=== PATIENT | male | born 1965 | race Two or more races ===

== ENCOUNTER 2021-10-29 13:44 | Inpatient (IN) | payer OTHER ==
[~2021-10-29] VITALS: Ht 185.4 cm; Wt 117.0 kg
[2021-10-29 14:15] LABS: Basophils # (auto) 0.1 10 ^3/uL (0-0.2); Basophils % (auto) 0.7 % (0.0-2.0); Eosinophils # (auto) 0 10 ^3/uL (0-0.8); Eosinophils % (auto) 0.2 % (0.0-7.0); Hematocrit 47.6 % (41.0-53.0); Hemoglobin 15.9 g/dL (13.5-17.5); Lymphocytes # (auto) 4.9 10 ^3/uL (0.4-5.4); Lymphocytes % (auto) 44.7 % (10.0-50.0); Mean Corpuscular Hemoglobin 30.5 pg (28.0-32.0); Mean Corpuscular Hgb Conc. 33.5 g/dL (32.0-36.0); Monocytes # (auto) 1.9 10 ^3/uL (0-1.3); Monocytes % (auto) 16.9 % (0.0-12.0); Neutrophils # (auto) 4.1 10 ^3/uL (1.6-8.6); Neutrophils % (auto) 37.5 % (37.0-80.0); Nucleated Red Blood Cells % 0.1 %; Red Blood Cells 5.23 10^6/uL (4.5-5.90); Red Cell Distribution Width 13.4 % (11.8-14.3)
[2021-10-29] MEDS ORDERED: LORazepam 2MG/ML-1ML VIAL IV ONE (14:30)
[2021-10-29] MEDS ORDERED: dilTIAZem 25 MG/5 ML VIAL IV ONE ×6 (14:30→23:00)
[2021-10-29 14:32] LABS: INR 1.2 (0.9-1.15); Partial Thromboplastin Time 31.3 sec (24.6-33.4)
[2021-10-29 14:33] LABS: Albumin 2.9 g/dL (3.4-5.0); BUN/Creatinine Ratio 16.5; Calcium 8.2 mg/dL (8.5-10.1); Magnesium 1.9 mg/dL (1.6-2.6); Potassium 4.1 mmol/L (3.5-5.1)
[2021-10-29 14:36] LABS: Bilirubin, Total 0.9 mg/dL (0.2-1.0); Total Protein 6.3 g/dL (6.4-8.2)
[2021-10-29] MEDS ORDERED: dilTIAZem HCL 50 MG/10 ML VIAL IV ONE (15:30)
[2021-10-29] MEDS ORDERED: SODIUM CHLORIDE 0.9% 1,000 ML IV ONE ×4 (16:00→23:00)
[2021-10-29] MEDS ORDERED: DEXTROSE (50%) 50ML SYRG IV ONE (19:00)
[2021-10-29] MEDS ORDERED: ETOMIDATE (2MG/ML) 20ML VIAL IV ONE (23:45)
[2021-10-30] VITALS (7 sets, daily range): BP systolic 90–144; BP diastolic 51–77
[2021-10-30] MEDS ORDERED: dilTIAZem 125mg/125ml BAG KIT 125 ML IV ONE (01:15)
[2021-10-30] MEDS ORDERED: AMIODARONE HCL 150 MG in D5W 5% 100 ML IV ONE (01:30)
[2021-10-30] MEDS: NITROGLYCERIN 2% OINT 1GM PKG TD SCH ×2 (01:30→21:45)
[2021-10-30] MEDS ORDERED: AMIODARONE 450mg/250ml AE 250 ML IV SCH (01:45)
[2021-10-30] MEDS ORDERED: AMIODARONE HCL (50 MG/ ML) 3 ML VIAL IV ONE (02:48)
[2021-10-30 05:04] LABS: Basophils # (auto) 0 10 ^3/uL (0-0.2); Basophils % (auto) 0.5 % (0.0-2.0); Eosinophils # (auto) 0 10 ^3/uL (0-0.8); Eosinophils % (auto) 0.3 % (0.0-7.0); Hematocrit 39.2 % (41.0-53.0); Hemoglobin 13.8 g/dL (13.5-17.5); Lymphocytes # (auto) 2.9 10 ^3/uL (0.4-5.4); Mean Corpuscular Hemoglobin 31.7 pg (28.0-32.0); Mean Corpuscular Hgb Conc. 35.2 g/dL (32.0-36.0); Monocytes # (auto) 1.1 10 ^3/uL (0-1.3); Monocytes % (auto) 17.1 % (0.0-12.0); Neutrophils # (auto) 2.4 10 ^3/uL (1.6-8.6); Neutrophils % (auto) 37.1 % (37.0-80.0); Nucleated Red Blood Cells % 0.1 %; Red Blood Cells 4.35 10^6/uL (4.5-5.90); Red Cell Distribution Width 13.5 % (11.8-14.3); White Blood Cell 6.4 10^3/uL (4.4-10.8)
[2021-10-30 05:15] LABS: Albumin 2.4 g/dL (3.4-5.0); BUN/Creatinine Ratio 12.9; Calcium 7.4 mg/dL (8.5-10.1); Potassium 3.9 mmol/L (3.5-5.1)
[2021-10-30 05:17] LABS: Bilirubin, Total 1.1 mg/dL (0.2-1.0); Total Protein 5.6 g/dL (6.4-8.2)
[2021-10-30] MEDS: AMIODARONE 450mg/250ml AE 250 ML IV SCH ×2 (07:52→22:45)
[2021-10-30] MEDS: PANTOPRAZOLE 40 MG/10 ML VIAL INJ IV SCH ×2 (11:16→21:51)
[2021-10-30] MEDS: ENOXAPARIN SOD 100 MG/1 ML SYRINGE SC SCH ×2 (11:16→21:51)
[2021-10-30] MEDS ORDERED: dilTIAZem 120MG ER CAP PO ONE (14:15)
[2021-10-30] MEDS ORDERED: METOPROLOL TARTRATE 25 MG TAB PO ONE (14:15)
[2021-10-30] MEDS ORDERED: BUPR8MIS SL (14:17)
[2021-10-30] MEDS ORDERED: CLON0.5T3 PO (14:17)
[2021-10-30] MEDS ORDERED: clonazePAM 0.5 MG TAB PO ONE (14:30)
[2021-10-30] MEDS: ONDANSETRON HCL 4 MG/2 ML VIAL IV PRN ×2 (15:44→21:51)
[2021-10-30] MEDS: clonazePAM 0.5 MG TAB PO SCH (20:24)
[2021-10-30] MEDS: ACETAMINOPHEN 325 MG TAB PO PRN (20:42)
[2021-10-30] MEDS: METOPROLOL TARTRATE 25 MG TAB PO SCH (21:50)
[2021-10-30] MEDS ORDERED: AZITHROMYCIN 500MG/ 250ML 250 ML IV ONE (23:00)
[2021-10-31] VITALS (31 sets, daily range): BP systolic 81–132; BP diastolic 46–80
[2021-10-31] MEDS: NITROGLYCERIN 2% OINT 1GM PKG TD SCH ×8 (00:18→23:45)
[2021-10-31] MEDS: ACETAMINOPHEN 325 MG TAB PO PRN ×2 (04:04→13:49)
[2021-10-31 04:15] LABS: Basophils # (auto) 0.1 10 ^3/uL (0-0.2); Basophils % (auto) 0.7 % (0.0-2.0); Eosinophils # (auto) 0 10 ^3/uL (0-0.8); Eosinophils % (auto) 0.3 % (0.0-7.0); Hematocrit 40.4 % (41.0-53.0); Hemoglobin 13.9 g/dL (13.5-17.5); Lymphocytes # (auto) 3.9 10 ^3/uL (0.4-5.4); Lymphocytes % (auto) 45.8 % (10.0-50.0); Mean Corpuscular Hemoglobin 30.4 pg (28.0-32.0); Mean Corpuscular Hgb Conc. 34.3 g/dL (32.0-36.0); Mean Corpuscular Volume 88.5 fL (80.0-100.0); Monocytes # (auto) 1.3 10 ^3/uL (0-1.3); Monocytes % (auto) 15.1 % (0.0-12.0); Neutrophils # (auto) 3.2 10 ^3/uL (1.6-8.6); Neutrophils % (auto) 38.1 % (37.0-80.0); Nucleated Red Blood Cells % 0.1 %; Red Blood Cells 4.56 10^6/uL (4.5-5.90); Red Cell Distribution Width 13.4 % (11.8-14.3); White Blood Cell 8.5 10^3/uL (4.4-10.8)
[2021-10-31 04:31] LABS: Urine Bacteria NONE SEEN /hpf (None Seen); Urine Blood 2+ /uL (Negative); Urine Mucus FEW (None Seen); Urine Specific Gravity 1.029 (1.001-1.035); Urine WBC 1 /hpf (0 - 3)
[2021-10-31 04:32] LABS: Albumin 2.4 g/dL (3.4-5.0); Calcium 7.8 mg/dL (8.5-10.1); Magnesium 1.8 mg/dL (1.6-2.6); Potassium 4.1 mmol/L (3.5-5.1)
[2021-10-31 04:34] LABS: BUN/Creatinine Ratio 11.4
[2021-10-31 04:37] LABS: Bilirubin, Total 1.5 mg/dL (0.2-1.0); Total Protein 5.9 g/dL (6.4-8.2)
[2021-10-31] MEDS: AMIODARONE 450mg/250ml AE 250 ML IV SCH (08:47)
[2021-10-31] MEDS: cefTRIAXone 1GM/50ML D5W 50 ML IV SCH ×2 (08:57→21:13)
[2021-10-31] MEDS: PANTOPRAZOLE 40 MG/10 ML VIAL INJ IV SCH ×2 (08:57→21:13)
[2021-10-31] MEDS: ENOXAPARIN SOD 100 MG/1 ML SYRINGE SC SCH ×2 (08:58→21:13)
[2021-10-31] MEDS: dilTIAZem 120MG ER CAP PO SCH (09:49)
[2021-10-31] MEDS: clonazePAM 0.5 MG TAB PO SCH ×2 (09:49→21:12)
[2021-10-31] MEDS: METOPROLOL TARTRATE 25 MG TAB PO SCH ×2 (09:50→21:10)
[2021-10-31] MEDS ORDERED: AZITHROMYCIN 500MG/ 250ML 250 ML IV SCH (10:00)
[2021-10-31] MEDS ORDERED: clonazePAM 0.5 MG TAB PO SCH (10:00)
[2021-10-31] MEDS ORDERED: VANCOMYCIN PER PHARMACY 0 MG IV SCH (16:45)
[2021-10-31] MEDS ORDERED: VANCOMYCIN 1GM/250ML 250 ML IV ONE (17:00)
[2021-10-31] MEDS ORDERED: PRED10TA PO (17:15)
[2021-10-31] MEDS ORDERED: DIVA500T13 PO (17:15)
[2021-10-31] MEDS ORDERED: CLON0.5T3 PO (17:15)
[2021-10-31] MEDS ORDERED: APIX5TAB PO (17:15)
[2021-11-01] VITALS (24 sets, daily range): BP systolic 84–130; BP diastolic 53–77
[2021-11-01 03:14] LABS: Basophils # (auto) 0 10 ^3/uL (0-0.2); Basophils % (auto) 0.4 % (0.0-2.0); Eosinophils # (auto) 0 10 ^3/uL (0-0.8); Eosinophils % (auto) 0.6 % (0.0-7.0); Hematocrit 36.5 % (41.0-53.0); Hemoglobin 12.6 g/dL (13.5-17.5); Lymphocytes # (auto) 3.6 10 ^3/uL (0.4-5.4); Lymphocytes % (auto) 43.1 % (10.0-50.0); Mean Corpuscular Hemoglobin 30.6 pg (28.0-32.0); Mean Corpuscular Hgb Conc. 34.4 g/dL (32.0-36.0); Mean Corpuscular Volume 88.9 fL (80.0-100.0); Monocytes # (auto) 1.3 10 ^3/uL (0-1.3); Monocytes % (auto) 15.5 % (0.0-12.0); Neutrophils # (auto) 3.4 10 ^3/uL (1.6-8.6); Neutrophils % (auto) 40.4 % (37.0-80.0); Red Blood Cells 4.11 10^6/uL (4.5-5.90); Red Cell Distribution Width 13.3 % (11.8-14.3); White Blood Cell 8.4 10^3/uL (4.4-10.8)
[2021-11-01 03:35] LABS: Alanine Aminotransferase 30 U/L (16-61); Albumin 2.1 g/dL (3.4-5.0); Anion Gap 7 (5-15); Aspartate Aminotransferase 32 U/L (15-37); BUN/Creatinine Ratio 9.8; Blood Urea Nitrogen 8 mg/dL (7-18); Calcium 7.2 mg/dL (8.5-10.1); Carbon Dioxide 26 mmol/L (21-32); Chloride 105 mmol/L (98-107); GFR African American 124 mL/min; GFR Non-African American 103 mL/min; Glucose 97 mg/dL (74-106); Sodium 138 mmol/L (136-145)
[2021-11-01 03:38] LABS: Alkaline Phosphatase 70 U/L (45-117); Bilirubin, Total 0.5 mg/dL (0.2-1.0); Total Protein 5.5 g/dL (6.4-8.2)
[2021-11-01] MEDS: NITROGLYCERIN 2% OINT 1GM PKG TD SCH ×5 (03:45→19:45)
[2021-11-01] MEDS: AMIODARONE 450mg/250ml AE 250 ML IV SCH ×2 (04:33→07:08)
[2021-11-01] MEDS: VANCOMYCIN 1GM/250ML 250 ML IV SCH ×2 (04:33→16:12)
[2021-11-01] MEDS: PANTOPRAZOLE 40 MG/10 ML VIAL INJ IV SCH ×2 (08:53→21:37)
[2021-11-01] MEDS: cefTRIAXone 1GM/50ML D5W 50 ML IV SCH ×2 (08:53→21:38)
[2021-11-01] MEDS: dilTIAZem 120MG ER CAP PO SCH (08:54)
[2021-11-01] MEDS: ACETAMINOPHEN 325 MG TAB PO PRN (08:54)
[2021-11-01] MEDS: METOPROLOL TARTRATE 25 MG TAB PO SCH ×2 (08:55→21:39)
[2021-11-01] MEDS: clonazePAM 0.5 MG TAB PO SCH ×2 (08:56→21:40)
[2021-11-01] MEDS: ENOXAPARIN SOD 100 MG/1 ML SYRINGE SC SCH ×2 (09:17→21:38)
[2021-11-01] MEDS ORDERED: REMDESIVIR PER PHARMACY 0 ML IV SCH (12:30)
[2021-11-01] MEDS ORDERED: REMDESIVIR 200 MG in NS 210ml LOADING DOSE ADULT IV ONE (13:15)
[2021-11-01] MEDS: ASCORBIC ACID 500 MG TAB PO SCH (13:54)
[2021-11-01] MEDS: methylPREDNISolone SOD SUCC 125 MG/2 ML VL IV SCH ×2 (13:54→21:38)
[2021-11-01] MEDS: CHOLECALCIFEROL (VITD3) 1,000UNIT=25mCg TAB PO SCH (13:54)
[2021-11-01] MEDS: ALBUTEROL SULF HFA 90MCG INH 200DOSE IN SCH ×2 (14:42→22:44)
[2021-11-02] VITALS (16 sets, daily range): BP systolic 101–134; BP diastolic 62–86
[2021-11-02] MEDS: VANCOMYCIN 1GM/250ML 250 ML IV SCH ×4 (05:16→23:35)
[2021-11-02] MEDS: ALBUTEROL SULF HFA 90MCG INH 200DOSE IN SCH ×3 (06:16→21:51)
[2021-11-02] MEDS: cefTRIAXone 1GM/50ML D5W 50 ML IV SCH ×2 (10:24→22:32)
[2021-11-02] MEDS: PANTOPRAZOLE 40 MG/10 ML VIAL INJ IV SCH ×2 (10:24→22:32)
[2021-11-02] MEDS: ENOXAPARIN SOD 100 MG/1 ML SYRINGE SC SCH ×2 (10:24→22:34)
[2021-11-02] MEDS: methylPREDNISolone SOD SUCC 125 MG/2 ML VL IV SCH ×2 (10:24→22:32)
[2021-11-02] MEDS: ASCORBIC ACID 500 MG TAB PO SCH (10:25)
[2021-11-02] MEDS: METOPROLOL TARTRATE 25 MG TAB PO SCH ×2 (10:27→22:34)
[2021-11-02] MEDS: clonazePAM 0.5 MG TAB PO SCH ×2 (10:27→22:33)
[2021-11-02] MEDS: CHOLECALCIFEROL (VITD3) 1,000UNIT=25mCg TAB PO SCH (10:28)
[2021-11-02] MEDS: dilTIAZem 120MG ER CAP PO SCH (10:29)
[2021-11-02] MEDS: AMIODARONE HCL 200 MG TAB PO SCH ×2 (10:30→22:33)
[2021-11-02] MEDS: AMIODARONE 450mg/250ml AE 250 ML IV SCH (10:45)
[2021-11-02] MEDS: REMDESIVIR 100mg 100 MG in SODIUM CHL 0.9% 230 ML IV SCH (15:00)
[2021-11-02] MEDS: ACETAMINOPHEN 325 MG TAB PO PRN (22:34)
[2021-11-03] MEDS: AMIODARONE 450mg/250ml AE 250 ML IV SCH ×2 (01:45→16:45)
[2021-11-03 05:00] VITALS: BP 96/64
[2021-11-03] MEDS: VANCOMYCIN 1GM/250ML 250 ML IV SCH ×3 (05:32→20:50)
[2021-11-03 08:00] VITALS: BP 104/67
[2021-11-03 08:29] LABS: Albumin 2.3 g/dL (3.4-5.0); BUN/Creatinine Ratio 20.3; Calcium 8.2 mg/dL (8.5-10.1); Potassium 3.7 mmol/L (3.5-5.1)
[2021-11-03 09:00] VITALS: BP 104/67
[2021-11-03] MEDS: methylPREDNISolone SOD SUCC 125 MG/2 ML VL IV SCH ×2 (10:33→22:05)
[2021-11-03] MEDS: cefTRIAXone 1GM/50ML D5W 50 ML IV SCH ×2 (10:33→22:07)
[2021-11-03] MEDS: PANTOPRAZOLE 40 MG/10 ML VIAL INJ IV SCH ×2 (10:33→22:04)
[2021-11-03] MEDS: METOPROLOL TARTRATE 25 MG TAB PO SCH ×2 (10:34→22:30)
[2021-11-03] MEDS: clonazePAM 0.5 MG TAB PO SCH ×2 (10:34→22:08)
[2021-11-03] MEDS: dilTIAZem 120MG ER CAP PO SCH (10:34)
[2021-11-03] MEDS: ASCORBIC ACID 500 MG TAB PO SCH (10:34)
[2021-11-03] MEDS: AMIODARONE HCL 200 MG TAB PO SCH ×2 (10:34→22:06)
[2021-11-03] MEDS: ENOXAPARIN SOD 100 MG/1 ML SYRINGE SC SCH ×2 (10:35→22:04)
[2021-11-03] MEDS: CHOLECALCIFEROL (VITD3) 1,000UNIT=25mCg TAB PO SCH (10:35)
[2021-11-03] MEDS: AZITHROMYCIN 500MG/ 250ML 250 ML IV SCH ×2 (10:48→11:30)
[2021-11-03] MEDS: ACETAMINOPHEN 325 MG TAB PO PRN ×2 (11:31→17:31)
[2021-11-03] MEDS: ALBUTEROL SULF HFA 90MCG INH 200DOSE IN SCH ×3 (11:37→22:19)
[2021-11-03 13:00] VITALS: BP 95/64
[2021-11-03] MEDS: REMDESIVIR 100mg 100 MG in SODIUM CHL 0.9% 230 ML IV SCH (16:03)
[2021-11-03 16:54] VITALS: BP 97/73
[2021-11-03 22:00] VITALS: BP_SYST 103; BP_SYST 106; BP_DIAS 56; BP_DIAS 76
[2021-11-03] MEDS: LACTULOSE 20Gm/30ML SOLN PO SCH (22:04)
[2021-11-03] MEDS: GABAPENTIN 400 MG CAP PO SCH (22:28)
[2021-11-04] MEDS: VANCOMYCIN 1GM/250ML 250 ML IV SCH ×2 (04:48→19:51)
[2021-11-04 05:00] VITALS: BP 103/58
[2021-11-04] MEDS: GABAPENTIN 400 MG CAP PO SCH ×3 (05:36→21:45)
[2021-11-04 06:58] LABS: Potassium 3.6 mmol/L (3.5-5.1)
[2021-11-04 07:01] LABS: BUN/Creatinine Ratio 20.2
[2021-11-04] MEDS: ALBUTEROL SULF HFA 90MCG INH 200DOSE IN SCH ×3 (07:19→19:22)
[2021-11-04 09:00] VITALS: BP 102/58
[2021-11-04] MEDS: LACTULOSE 20Gm/30ML SOLN PO SCH ×2 (10:00→21:42)
[2021-11-04] MEDS: dilTIAZem 120MG ER CAP PO SCH ×2 (10:00→11:16)
[2021-11-04] MEDS: PANTOPRAZOLE 40 MG/10 ML VIAL INJ IV SCH ×2 (10:43→21:43)
[2021-11-04] MEDS: AZITHROMYCIN 500MG/ 250ML 250 ML IV SCH (10:43)
[2021-11-04] MEDS: methylPREDNISolone SOD SUCC 125 MG/2 ML VL IV SCH ×2 (10:43→21:48)
[2021-11-04] MEDS: cefTRIAXone 1GM/50ML D5W 50 ML IV SCH ×2 (10:43→21:38)
[2021-11-04] MEDS: ENOXAPARIN SOD 100 MG/1 ML SYRINGE SC SCH ×2 (10:44→21:41)
[2021-11-04] MEDS: clonazePAM 0.5 MG TAB PO SCH ×2 (10:44→21:47)
[2021-11-04] MEDS: AMIODARONE HCL 200 MG TAB PO SCH ×2 (10:44→21:45)
[2021-11-04] MEDS: CHOLECALCIFEROL (VITD3) 1,000UNIT=25mCg TAB PO SCH (10:45)
[2021-11-04] MEDS: ASCORBIC ACID 500 MG TAB PO SCH (10:45)
[2021-11-04] MEDS: METOPROLOL TARTRATE 25 MG TAB PO SCH ×2 (11:15→21:48)
[2021-11-04 13:00] VITALS: BP 111/69
[2021-11-04] MEDS: REMDESIVIR 100mg 100 MG in SODIUM CHL 0.9% 230 ML IV SCH (16:40)
[2021-11-04 17:00] VITALS: BP 112/58
[2021-11-04] MEDS: BUDESONIDE (INHALATION) 180 MCG IH IN SCH (19:22)
[2021-11-04] MEDS: HYDROCORTONE 1% TOPICAL CREAM 30 GM TUBE TOP SCH (21:48)
[2021-11-04 22:00] VITALS: BP 111/70
[2021-11-04] MEDS ORDERED: BUDESONIDE (INHALATION) 0.5 MG/2 ML NEB NEB SCH (22:00)
[2021-11-05 05:00] VITALS: BP 103/69
[2021-11-05] MEDS: GABAPENTIN 400 MG CAP PO SCH ×3 (05:41→21:23)
[2021-11-05 08:53] VITALS: BP 103/60
[2021-11-05] MEDS: PANTOPRAZOLE 40 MG/10 ML VIAL INJ IV SCH ×2 (09:14→21:22)
[2021-11-05] MEDS: methylPREDNISolone SOD SUCC 125 MG/2 ML VL IV SCH ×2 (09:15→21:22)
[2021-11-05] MEDS: ENOXAPARIN SOD 100 MG/1 ML SYRINGE SC SCH ×2 (09:15→21:21)
[2021-11-05] MEDS: LACTULOSE 20Gm/30ML SOLN PO SCH ×2 (09:16→21:25)
[2021-11-05] MEDS: clonazePAM 0.5 MG TAB PO SCH ×2 (09:17→21:24)
[2021-11-05] MEDS: cefTRIAXone 1GM/50ML D5W 50 ML IV SCH ×2 (09:18→22:00)
[2021-11-05] MEDS: dilTIAZem 120MG ER CAP PO SCH (09:18)
[2021-11-05] MEDS: CHOLECALCIFEROL (VITD3) 1,000UNIT=25mCg TAB PO SCH (09:19)
[2021-11-05] MEDS: ASCORBIC ACID 500 MG TAB PO SCH (09:19)
[2021-11-05] MEDS: AMIODARONE HCL 200 MG TAB PO SCH ×2 (09:19→21:25)
[2021-11-05] MEDS: METOPROLOL TARTRATE 25 MG TAB PO SCH ×2 (09:19→21:45)
[2021-11-05] MEDS: HYDROCORTONE 1% TOPICAL CREAM 30 GM TUBE TOP SCH ×2 (09:29→21:23)
[2021-11-05] MEDS: BUDESONIDE (INHALATION) 180 MCG IH IN SCH ×2 (10:00→22:55)
[2021-11-05 12:25] LABS: Albumin 2.4 g/dL (3.4-5.0); Potassium 4.5 mmol/L (3.5-5.1)
[2021-11-05 12:26] LABS: BUN/Creatinine Ratio 22.6
[2021-11-05 12:29] LABS: Bilirubin, Total 0.3 mg/dL (0.2-1.0); Total Protein 5.7 g/dL (6.4-8.2)
[2021-11-05 12:53] VITALS: BP 135/74
[2021-11-05] MEDS: ALBUTEROL SULF HFA 90MCG INH 200DOSE IN SCH ×2 (14:00→22:55)
[2021-11-05] MEDS ORDERED: VANCOMYCIN 1GM/250ML 250 ML IV ONE (14:00)
[2021-11-05] MEDS: REMDESIVIR 100mg 100 MG in SODIUM CHL 0.9% 230 ML IV SCH (16:26)
[2021-11-05 17:27] VITALS: BP 116/70
[2021-11-05] MEDS: VANCOMYCIN 1GM/250ML 250 ML IV SCH (21:19)
[2021-11-05 21:30] VITALS: BP 112/69
[2021-11-06 05:00] VITALS: BP 109/65
[2021-11-06] MEDS: VANCOMYCIN 1GM/250ML 250 ML IV SCH ×3 (05:34→23:50)
[2021-11-06] MEDS: GABAPENTIN 400 MG CAP PO SCH ×3 (05:42→21:53)
[2021-11-06] MEDS: ALBUTEROL SULF HFA 90MCG INH 200DOSE IN SCH ×3 (07:46→22:57)
[2021-11-06] MEDS: BUDESONIDE (INHALATION) 180 MCG IH IN SCH ×2 (07:46→22:57)
[2021-11-06 08:00] VITALS: BP 104/70
[2021-11-06] MEDS: cefTRIAXone 1GM/50ML D5W 50 ML IV SCH ×2 (10:12→22:06)
[2021-11-06] MEDS: PANTOPRAZOLE 40 MG/10 ML VIAL INJ IV SCH ×2 (10:12→21:58)
[2021-11-06] MEDS: LACTULOSE 20Gm/30ML SOLN PO SCH ×2 (10:13→21:56)
[2021-11-06] MEDS: AMIODARONE HCL 200 MG TAB PO SCH ×2 (10:14→22:20)
[2021-11-06] MEDS: ENOXAPARIN SOD 100 MG/1 ML SYRINGE SC SCH ×2 (10:14→21:57)
[2021-11-06] MEDS: dilTIAZem 120MG ER CAP PO SCH (10:14)
[2021-11-06] MEDS: methylPREDNISolone SOD SUCC 125 MG/2 ML VL IV SCH ×2 (10:14→22:20)
[2021-11-06] MEDS: clonazePAM 0.5 MG TAB PO SCH ×2 (10:15→21:56)
[2021-11-06] MEDS: ASCORBIC ACID 500 MG TAB PO SCH (10:15)
[2021-11-06] MEDS: HYDROCORTONE 1% TOPICAL CREAM 30 GM TUBE TOP SCH ×2 (10:15→23:56)
[2021-11-06] MEDS: CHOLECALCIFEROL (VITD3) 1,000UNIT=25mCg TAB PO SCH (10:15)
[2021-11-06] MEDS: METOPROLOL TARTRATE 25 MG TAB PO SCH ×2 (10:16→21:54)
[2021-11-06 12:00] VITALS: BP 110/68
[2021-11-06 16:00] VITALS: BP 98/50
[2021-11-06 22:00] VITALS: BP 134/56
[2021-11-07 05:00] VITALS: BP 108/71
[2021-11-07] MEDS: GABAPENTIN 400 MG CAP PO SCH ×3 (06:01→21:14)
[2021-11-07] MEDS: VANCOMYCIN 1GM/250ML 250 ML IV SCH ×2 (06:01→18:25)
[2021-11-07] MEDS: ALBUTEROL SULF HFA 90MCG INH 200DOSE IN SCH ×3 (07:23→22:49)
[2021-11-07] MEDS: BUDESONIDE (INHALATION) 180 MCG IH IN SCH ×2 (07:23→22:49)
[2021-11-07 08:45] VITALS: BP 106/59
[2021-11-07 09:51] VITALS: BP 106/59
[2021-11-07] MEDS: LACTULOSE 20Gm/30ML SOLN PO SCH ×2 (10:00→22:00)
[2021-11-07] MEDS: PANTOPRAZOLE 40 MG/10 ML VIAL INJ IV SCH ×2 (10:55→21:17)
[2021-11-07] MEDS: methylPREDNISolone SOD SUCC 125 MG/2 ML VL IV SCH ×2 (10:55→21:18)
[2021-11-07] MEDS: cefTRIAXone 1GM/50ML D5W 50 ML IV SCH ×2 (10:55→21:18)
[2021-11-07] MEDS: ASCORBIC ACID 500 MG TAB PO SCH (10:58)
[2021-11-07] MEDS: METOPROLOL TARTRATE 25 MG TAB PO SCH ×2 (10:59→21:13)
[2021-11-07] MEDS: AMIODARONE HCL 200 MG TAB PO SCH ×2 (11:00→21:15)
[2021-11-07] MEDS: dilTIAZem 120MG ER CAP PO SCH (11:00)
[2021-11-07] MEDS: clonazePAM 0.5 MG TAB PO SCH ×2 (11:00→21:14)
[2021-11-07] MEDS: ENOXAPARIN SOD 100 MG/1 ML SYRINGE SC SCH ×2 (11:01→21:16)
[2021-11-07] MEDS: HYDROCORTONE 1% TOPICAL CREAM 30 GM TUBE TOP SCH ×2 (11:01→22:00)
[2021-11-07] MEDS: CHOLECALCIFEROL (VITD3) 1,000UNIT=25mCg TAB PO SCH (11:01)
[2021-11-07 12:30] VITALS: BP 105/73
[2021-11-07 16:50] VITALS: BP 94/54
[2021-11-07 22:00] VITALS: BP 110/70
[2021-11-08] MEDS: VANCOMYCIN 1GM/250ML 250 ML IV SCH ×3 (02:21→18:00)
[2021-11-08 05:00] VITALS: BP 107/67
[2021-11-08] MEDS: ALBUTEROL SULF HFA 90MCG INH 200DOSE IN SCH (06:00)
[2021-11-08] MEDS: GABAPENTIN 400 MG CAP PO SCH ×3 (07:22→22:22)
[2021-11-08 07:57] LABS: Basophils # (auto) 0 10 ^3/uL (0-0.2); Basophils % (auto) 0.1 % (0.0-2.0); Eosinophils # (auto) 0 10 ^3/uL (0-0.8); Eosinophils % (auto) 0.1 % (0.0-7.0); Hematocrit 40.5 % (41.0-53.0); Hemoglobin 13.6 g/dL (13.5-17.5); Lymphocytes # (auto) 0.9 10 ^3/uL (0.4-5.4); Lymphocytes % (auto) 7.8 % (10.0-50.0); Mean Corpuscular Hemoglobin 30.4 pg (28.0-32.0); Mean Corpuscular Hgb Conc. 33.7 g/dL (32.0-36.0); Mean Corpuscular Volume 90.3 fL (80.0-100.0); Monocytes # (auto) 0.7 10 ^3/uL (0-1.3); Monocytes % (auto) 6.1 % (0.0-12.0); Neutrophils # (auto) 9.7 10 ^3/uL (1.6-8.6); Neutrophils % (auto) 85.9 % (37.0-80.0); Nucleated Red Blood Cells % 0.1 %; Red Blood Cells 4.48 10^6/uL (4.5-5.90); Red Cell Distribution Width 13.2 % (11.8-14.3); White Blood Cell 11.3 10^3/uL (4.4-10.8)
[2021-11-08] MEDS ORDERED: LIDOCAINE VISCOUS 2% 15ML UD MT ONE (08:15)
[2021-11-08] MEDS ORDERED: fentaNYL CITRATE 100 MCG/2 ML VL IV ONE (08:15)
[2021-11-08] MEDS ORDERED: MIDAZOLAM HCL 2MG/2ML 2ml VIAL (1mg/ml) IV ONE (08:15)
[2021-11-08 09:14] VITALS: BP 106/64
[2021-11-08] MEDS ORDERED: diphenhdrAMINE HCL 50 MG/1 ML VL ONE (09:48)
[2021-11-08] MEDS: BUDESONIDE (INHALATION) 180 MCG IH IN SCH ×2 (10:00→18:13)
[2021-11-08] MEDS: LACTULOSE 20Gm/30ML SOLN PO SCH ×3 (10:00→22:20)
[2021-11-08] MEDS ORDERED: AMIODARONE HCL 200 MG TAB PO SCH (10:15)
[2021-11-08] MEDS ORDERED: diphenhdrAMINE HCL 50 MG/1 ML VL IV ONE (10:30)
[2021-11-08] MEDS ORDERED: APIXABAN 5 MG TAB PO SCH (10:30)
[2021-11-08] MEDS: cefTRIAXone 1GM/50ML D5W 50 ML IV SCH ×2 (11:44→21:22)
[2021-11-08] MEDS: PANTOPRAZOLE 40 MG/10 ML VIAL INJ IV SCH ×2 (11:45→22:20)
[2021-11-08] MEDS: methylPREDNISolone SOD SUCC 125 MG/2 ML VL IV SCH (11:45)
[2021-11-08] MEDS: clonazePAM 0.5 MG TAB PO SCH ×2 (11:53→22:21)
[2021-11-08] MEDS: ASCORBIC ACID 500 MG TAB PO SCH (11:54)
[2021-11-08] MEDS: CHOLECALCIFEROL (VITD3) 1,000UNIT=25mCg TAB PO SCH (11:54)
[2021-11-08] MEDS: HYDROCORTONE 1% TOPICAL CREAM 30 GM TUBE TOP SCH ×2 (11:56→22:00)
[2021-11-08] MEDS: APIXABAN 5 MG TAB PO SCH ×2 (11:57→22:22)
[2021-11-08] MEDS ORDERED: ALBUTEROL SULF HFA 90MCG INH 200DOSE IN PRN (12:00)
[2021-11-08 12:57] VITALS: BP 109/71
[2021-11-08] MEDS: METOPROLOL TARTRATE 25 MG TAB PO SCH ×2 (15:06→22:22)
[2021-11-08 16:33] VITALS: BP 104/61
[2021-11-08] MEDS ORDERED: APIX5TAB PO (19:06)
[2021-11-08] MEDS ORDERED: MET25T PO (19:06)
[2021-11-08] MEDS ORDERED: DILT120C12 PO (19:06)
[2021-11-08 20:15] VITALS: BP 121/68
[2021-11-08 22:00] VITALS: BP 121/68
[2021-11-08] MEDS ORDERED: methylPREDNISolone SOD SUCC 40 MG/ML VL IV SCH (22:00)
[2021-11-09] MEDS ORDERED: dilTIAZem 120MG ER CAP PO SCH (10:00)
== END 2021-11-08 23:30 | disposition home or self-care (01) | DRG 177 ==
LOC: EDBD 13:44 → EEVIPCON 13:44 → ER 13:44 → OVERFLOW 10-30 01:23 → ICU WEST 10-30 08:37 → TELE-CENTR 11-02 13:53
PROVIDERS: ADMIT Specialist; ATTEND Internal Medicine
PROC: 05HC33Z Insertion of Infusion Device into Left Basilic Vein, Percutaneous Approach (ICD-10-PCS; 2021-10-30)
PROC: B54NZZA Ultrasonography of Left Upper Extremity Veins, Guidance (ICD-10-PCS; 2021-10-30)
PROC: XW033E5 Introduction of Remdesivir Anti-infective into Peripheral Vein, Percutaneous Approach, New Technology Group 5 (ICD-10-PCS; 2021-11-01)
PROC: B24BZZ4 Ultrasonography of Heart with Aorta, Transesophageal (ICD-10-PCS; principal; 2021-11-08)
PROC: 5A2204Z Restoration of Cardiac Rhythm, Single (ICD-10-PCS; 2021-11-08)
DX: U07.1 COVID-19 (principal); J12.82 Pneumonia due to coronavirus disease 2019; J96.01 Acute respiratory failure with hypoxia; J98.11 Atelectasis; E44.1 Mild protein-calorie malnutrition; I50.20 Unspecified systolic (congestive) heart failure; I48.91 Unspecified atrial fibrillation; Z79.01 Long term (current) use of anticoagulants; Z68.30 Body mass index [BMI] 30.0-30.9, adult
CPT/HCPCS: 36415; 36600; 71045; 80048; 80053; 80069; 80164; 80202; 81001; 82565; 82728; 82805; 82962; 83605; 83735; 83880; 84436; 84443; 84481; 84484; 85025; 85379; 85610; 85730; 87040; 87070; 87077; 87081; 87186; 87205; 93005; 93306; 93312; 93970; 94640; 96361; 96365; 96366; 96375; 99152; 99291; C9113; G0378; J0696; J2250; J2405; J7060